=== PATIENT | female | born 1980 | race Caucasian/White ===

== ENCOUNTER → 2017-09-12 | Outpatient (REF) | payer OTHER ==
[2017-09-12 12:37] LABS: HEMATOCRIT 30.8 % (36.0-47.0); HEMOGLOBIN 9.4 g/dl (12.0-15.5); MEAN CORPUSCULAR HEMOGLOBIN 24.2 pg (27.0-33.0); MEAN CORPUSCULAR HGB CONC 30.5 g/dl (32.0-36.5); MEAN CORPUSCULAR VOLUME 79.4 fl (80.0-96.0); PLATELET COUNT, AUTOMATED 304 10^3/uL (150-450); RED BLOOD COUNT 3.88 10^6/uL (4.00-5.40); RED CELL DISTRIBUTION WIDTH 15.3 % (11.5-14.5); WHITE BLOOD COUNT 4.5 10^3/uL (4.0-10.0)
== END ==
LOC: M SFHCWAGY 10:42
DX: Z12.4 Encounter for screening for malignant neoplasm of cervix (principal); N92.0 Excessive and frequent menstruation with regular cycle
CPT/HCPCS: 84443

== ENCOUNTER → 2018-01-27 | Outpatient (CLI) | payer BC, OTHER | LOC: M WUC 18:04 | DX: M19.071 Primary osteoarthritis, right ankle and foot (principal); M79.674 Pain in right toe(s) | CPT/HCPCS: 73630 ==

== ENCOUNTER → 2018-06-01 | Outpatient (CLI) | payer BC, OTHER ==
[2018-06-01 18:46] LABS: HEMATOCRIT 29.1 % (36.0-47.0); HEMOGLOBIN 8.5 g/dl (12.0-15.5); MEAN CORPUSCULAR HEMOGLOBIN 22.1 pg (27.0-33.0); MEAN CORPUSCULAR HGB CONC 29.2 g/dl (32.0-36.5); MEAN CORPUSCULAR VOLUME 75.6 fl (80.0-96.0); PLATELET COUNT, AUTOMATED 319 10^3/uL (150-450); RED BLOOD COUNT 3.85 10^6/uL (4.00-5.40)
[2018-06-01 19:07] LABS: ALBUMIN 3.7 GM/DL (3.2-5.2); ALT/SGPT 17 U/L (12-78); BILIRUBIN,TOTAL 0.3 MG/DL (0.2-1.0); BLOOD UREA NITROGEN 9 MG/DL (7-18); CALCIUM LEVEL 8.9 MG/DL (8.5-10.1); CARBON DIOXIDE LEVEL 25 MEQ/L (21-32); CHLORIDE LEVEL 110 MEQ/L (98-107); CREATININE FOR GFR 0.58 MG/DL (0.55-1.30); FERRITIN 2 NG/ML (8-252); GLOMERULAR FILTRATION RATE > 60.0 (>60); GLUCOSE, FASTING 85 MG/DL (70-100); IRON (FE) 13 UG/DL (50-170); PERCENT SATURATION 2.6 % (13.2-45.0); POTASSIUM SERUM 4.7 MEQ/L (3.5-5.1); SODIUM LEVEL 140 MEQ/L (136-145); TOTAL IRON BINDING CAPACITY 507 UG/DL (250-450); TOTAL PROTEIN 6.5 GM/DL (6.4-8.2)
[2018-06-01 19:08] LABS: TOTAL 25(OH) VITAMIN D 25.9 NG/ML (30.0-100.0); VITAMIN B12 LEVEL 1768 PG/ML (247-911)
== END ==
LOC: M LAB 17:23
PROVIDERS: ATTEND Nurse Practitioner Adult Health
DX: Z00.00 Encounter for general adult medical examination without abnormal findings (principal); Z98.84 Bariatric surgery status; E55.9 Vitamin D deficiency, unspecified; E53.8 Deficiency of other specified B group vitamins

== ENCOUNTER → 2018-09-01 | Outpatient (REF) | payer OTHER ==
[~2018-09-01] MED LIST: AMIT10TA PO; CVS5000S2 PO; DRIS50003 PO; MULTCAP PO; [UNRECOGNIZED DRUG - OTHER] PO
[2018-09-01 16:14] LABS: HEMATOCRIT 34.6 % (36.0-47.0); HEMOGLOBIN 10.6 g/dl (12.0-15.5); MEAN CORPUSCULAR HEMOGLOBIN 25.3 pg (27.0-33.0); MEAN CORPUSCULAR HGB CONC 30.6 g/dl (32.0-36.5); MEAN CORPUSCULAR VOLUME 82.6 fl (80.0-96.0); PLATELET COUNT, AUTOMATED 274 10^3/uL (150-450); RED BLOOD COUNT 4.19 10^6/uL (4.00-5.40); WHITE BLOOD COUNT 4.7 10^3/uL (4.0-10.0)
[2018-09-01 16:17] LABS: ALBUMIN 3.8 GM/DL (3.2-5.2); ALT/SGPT 18 U/L (12-78); BILIRUBIN,TOTAL 0.2 MG/DL (0.2-1.0); BLOOD UREA NITROGEN 8 MG/DL (7-18); CALCIUM LEVEL 9.1 MG/DL (8.5-10.1); CARBON DIOXIDE LEVEL 27 MEQ/L (21-32); CHLORIDE LEVEL 109 MEQ/L (98-107); CREATININE FOR GFR 0.63 MG/DL (0.55-1.30); FERRITIN 7 NG/ML (8-252); GLOMERULAR FILTRATION RATE > 60.0 (>60); GLUCOSE, FASTING 74 MG/DL (70-100); IRON (FE) 21 UG/DL (50-170); PERCENT SATURATION 4.3 % (13.2-45.0); POTASSIUM SERUM 4.2 MEQ/L (3.5-5.1); SODIUM LEVEL 140 MEQ/L (136-145); TOTAL IRON BINDING CAPACITY 490 UG/DL (250-450); TOTAL PROTEIN 6.9 GM/DL (6.4-8.2)
[2018-09-01 16:31] LABS: TOTAL 25(OH) VITAMIN D 23.2 NG/ML (30.0-100.0)
== END ==
LOC: M SFHCPLAZ 14:02
PROVIDERS: ATTEND Nurse Practitioner Adult Health
DX: Z98.84 Bariatric surgery status (principal); E55.9 Vitamin D deficiency, unspecified

== ENCOUNTER → 2019-12-10 | Outpatient (CLI) | payer BC ==
--- NOTE | 2019-12-20 16:21 | REP ---
BILATERAL MAMMOGRAM WITH 3D TOMOSYNTHESIS AND LEFT BREAST ULTRASOUND HISTORY: Left axillary soreness radiating to upper left breast. Baseline mammogram. No comparison studies. No family history of breast cancer. Tyrer- Cuzick lifetime risk of breast cancer 12.4%. TECHNIQUE: MLO and CC views of both breasts performed with 3D tomosynthesis. FINDINGS: Moderate heterogeneous fibroglandular tissue is seen in a fairly symmetrical pattern bilaterally. Volpara breast density is C. There appears to be a smoothly marginated nodule in the medial left breast in the region of 9 o'clock, approximately 6 cm from the nipple. This measures about 8 mm in maximum diameter. Otherwise, no mass is seen bilaterally and there is no architectural distortion. There are no suspicious clusters of microcalcifications. There is no evidence of axillary adenopathy mammographically. Real-time sonographic evaluation of the left axillary region performed, as well as the area of pain in the upper left breast, predominantly medially. At the 9 o'clock position of the left breast, there is an oval hypoechoic nodule present. This measures 8 x 10 x 3 mm. This probably corresponds to the nodule on the mammogram. No other cystic or solid mass is seen in the visualized portions of the left breast and in the left axilla. IMPRESSION: ACR 4 suspicious. There is an oval hypoechoic nodule at the 9 o'clock position of the left breast measuring 1 cm in maximum diameter with mildly lobulated borders. I suspect this corresponds to a smoothly marginated nodule on the mammogram, located medially in the left breast. Recommend ultrasound-guided biopsy. Postprocedure mammogram should be performed. This mammogram was interpreted with the aid of an FDA approved computer-aided detection system. The patient states her last clinical breast exam was 11/2019. Patient letter: 4. COLBY
== END ==
LOC: M WHC 10:00
PROVIDERS: ATTEND Nurse Practitioner Family
DX: N64.4 Mastodynia (principal); N63.20 Unspecified lump in the left breast, unspecified quadrant
CPT/HCPCS: 76642; 77066; G0279

== ENCOUNTER → 2020-01-26 | Outpatient (CLI) | payer BC ==
[2020-01-26 15:11] VITALS: BP 124/68
--- NOTE | 2020-01-26 16:18 | REP ---
INDICATION: R92.8 ABNORMAL MAMMOGRAM LT BREAST,POST BIOPSY. COMPARISON: 12/10/2019. TECHNIQUE: ML and CC views left breast performed. Ultrasound-guided biopsy of a nodule in the medial left breast was performed today. FINDINGS: Biopsy clip is noted medially in the left breast at the site of a previous identified nodule on the mammogram of 12/10/2019. IMPRESSION: Appropriate biopsy clip position at the site of a nodule seen on the prior mammogram of 12/10/2019. This was biopsied today with ultrasound guidance. RECOMMENDATION: Clinical follow-up. <Electronically signed by George Juarez > 01/26/20 [id number]
--- NOTE | 2020-01-26 16:19 | REP ---
INDICATION: R92.8 ABNORMAL MAMMOGRAM LT BREAST. COMPARISON: 12/10/2019. TECHNIQUE: Real-time sonographic evaluation of left breast performed. FINDINGS: Ultrasound guidance was provided for Dr. Hendrickson who performed ultrasound-guided biopsy of an oval hypoechoic nodule of the left breast at 9 o'clock position. IMPRESSION: Ultrasound guidance provided for Dr. Hendrickson who performed ultrasound-guided biopsy of a nodule at the 9 o'clock position of the left breast. RECOMMENDATION: Clinical follow-up. <Electronically signed by George Juarez > 01/26/20 [id number]
--- NOTE | 2020-01-29 20:44 | ROOPDOC ---
[facility] Report Of Operation Report of Operation DATE OF PROCEDURE: 01/26/20 DIAGNOSIS: Left breast suspicious lesion PROCEDURE: Ultrasound guided biopsy of left breast suspicious lesion SURGEON: Catherine Carter BLOOD LOSS: minimal COMPLICATIONS: none Lidocaine 1% LOT [id number] Expiration 10/2022 Sodium Bicarbonate 8.4% LOT [id number] Expiration 12/2020 Hydromark clip LOT [id number] Expiration 10/2022 SHAPE 3 Bx device: BARD [id number] x10 cm LOT [id number] Expiration 08/2022 Informed consent was obtained. The most common risk and possible complications including bleeding, hematoma, bruising, infection, injury to surrounding structures were explained to the patient and the patient expressed understanding. Patient was placed on the bed in the supine position. Appropriate time out was done stating patients name, date of , and the procedure to be performed. The left breast was prepped and draped in the usual fashion. The ultrasound was used to confirm the location of the lesion in the left breast at 9:00 6 centimeters from the nipple. Plain Lidocaine 1% and 8.4% sodium bicarbonate 10:1 mix was used to anesthetize the skin, the biopsy site and tissues along the anticipated biopsy tract. Small skin incision was made with blade number 11. BARD Marquee 14G cannula with introducer ([id number]) was inserted through the incision and advanced under the ultrasound guidance to position immediately adjacent to the lesion. Next, the introducer was removed and BARD Marquee 14G biopsy device was places in the cannula. Pre-biopsy imaging, and post-biopsy imaging were captured. Five good core biopsies were taken at various levels of the lesion. Specimen was placed in formaldehyde, labeled with appropriate biopsy site and patients name, and sent to pathology for evaluation. Next, the biopsy device was withdrawn and a clip introducer was inserted into the biopsy site via the cannula. The SHAPE 3 Hydromark clip was deployed under sonographic guidance. Post-clip placement image was captured. Manual pressure over the biopsy cavity and tract was held after the clip introducer was withdrawn. No bleeding was noted upon removal of the pressure. Post-biopsy mammogram of the left breast was obtained and showed clip in expected position. Postprocedural dressing was placed. Patient tolerated procedure well. Discharge instructions were discussed with the patient and the patient expressed understanding. CATHERINE CARTER DO Jan 29, 2020 20:44
== END ==
LOC: M WHCPRO 13:44
PROVIDERS: ATTEND Surgery
DX: N60.12 Diffuse cystic mastopathy of left breast (principal)

== ENCOUNTER → 2020-07-10 | Outpatient (CLI) | payer BC ==
[~2020-07-10] MED LIST changes: -AMIT10TA PO; +AMIT10TA7 PO
--- NOTE | 2020-07-10 14:08 | REP ---
INDICATION: R92.8 ABN LEFT BREAST MAMMO/6 MO F/U S/P BX. COMPARISON: 01/26/2020 and 12/10/2019 TECHNIQUE: Cc and MLO views of the left breast were obtained using both 2D and 3D modalities. Diagnostic ultrasonography of the left breast was obtained at the 9 o'clock position as on the prior exam. FINDINGS: They post biopsy clip remains in satisfactory position mammographically. The surgical biopsy clip is seen at the 9 o'clock position at the site of where the nodule was previously seen. The Volpara volumetric breast density pattern is b. IMPRESSION: BIRADS/ACR category 1 negative left mammogram. And left breast ultrasound The patient letter being requested is M1. RECOMMENDATION: Repeat screening mammography recommended 1 year (for women over 40). <Electronically signed by Nader Roe > 07/10/20 [id number]
== END ==
LOC: M WHC 09:54
PROVIDERS: ATTEND Surgery
DX: R92.8 Other abnormal and inconclusive findings on diagnostic imaging of breast (principal)
CPT/HCPCS: 76642; 77065; G0279

== ENCOUNTER → 2020-11-08 | Outpatient (CLI) | payer BC, OTHER ==
[2020-11-08 17:10] LABS: HEMATOCRIT 30.6 % (36.0-47.0); HEMOGLOBIN 8.4 g/dl (12.0-15.5); MEAN CORPUSCULAR HEMOGLOBIN 20.8 pg (27.0-33.0); MEAN CORPUSCULAR HGB CONC 27.5 g/dl (32.0-36.5); MEAN CORPUSCULAR VOLUME 75.7 fl (80.0-96.0); PLATELET COUNT, AUTOMATED 360 10^3/uL (150-450); RED BLOOD COUNT 4.04 10^6/uL (4.00-5.40); WHITE BLOOD COUNT 7.1 10^3/uL (4.0-10.0)
[2020-11-08 17:51] LABS: ALBUMIN 3.7 GM/DL (3.2-5.2); ALT/SGPT 17 U/L (12-78); BILIRUBIN,TOTAL 0.5 MG/DL (0.2-1.0); BLOOD UREA NITROGEN 11 MG/DL (7-18); CALCIUM LEVEL 8.9 MG/DL (8.5-10.1); CARBON DIOXIDE LEVEL 22 MEQ/L (21-32); CHLORIDE LEVEL 112 MEQ/L (98-107); CREATININE FOR GFR 0.66 MG/DL (0.55-1.30); FERRITIN 4 NG/ML (8-252); GLOMERULAR FILTRATION RATE > 60.0 (>60); GLUCOSE, FASTING 86 MG/DL (70-100); IRON (FE) 27 UG/DL (50-170); PERCENT SATURATION 4.7 % (13.2-45.0); POTASSIUM SERUM 4.7 MEQ/L (3.5-5.1); SODIUM LEVEL 141 MEQ/L (136-145); TOTAL IRON BINDING CAPACITY 569 UG/DL (250-450)
[2020-11-08 18:28] LABS: HEMOGLOBIN A1c 5.2 %
[2020-11-08 18:34] LABS: TOTAL 25(OH) VITAMIN D 25.3 NG/ML (30.0-100.0); VITAMIN B12 LEVEL 271 PG/ML (247-911)
== END ==
LOC: M PLALAB 14:41
PROVIDERS: ATTEND Nurse Practitioner Adult Health
DX: Z00.00 Encounter for general adult medical examination without abnormal findings (principal); E55.9 Vitamin D deficiency, unspecified; Z98.84 Bariatric surgery status; Z68.33 Body mass index [BMI] 33.0-33.9, adult; D50.9 Iron deficiency anemia, unspecified

== ENCOUNTER 2020-11-21 09:05 | Outpatient (CLI) | payer BC, OTHER ==
[~2020-11-21] VITALS: Ht 175.3 cm; Wt 81.0 kg
[~2020-11-21 09:05] MED LIST changes: +IRON SUCROSE 25 MG in NS 25 ML IV ONE; +IRON SUCROSE 475 MG in NS 250 ML IV ONE
[2020-11-21 09:15] VITALS: BP 160/78
[2020-11-21 10:35] VITALS: BP 145/79
[2020-11-21 12:03] VITALS: BP 118/68
[2020-11-21 14:19] VITALS: BP 129/73
== END 2020-11-21 14:30 | disposition home or self-care (01) ==
LOC: M INFU 09:05
PROVIDERS: ATTEND Nurse Practitioner Adult Health
DX: D50.9 Iron deficiency anemia, unspecified (principal)
CPT/HCPCS: 96365; 96366; J1756

== ENCOUNTER → 2021-05-14 | Outpatient (CLI) | payer BC, OTHER ==
[~2021-05-14] MED LIST changes: -IRON SUCROSE 25 MG in NS 25 ML IV ONE; -IRON SUCROSE 475 MG in NS 250 ML IV ONE
[2021-05-14 13:27] LABS: HEMATOCRIT 36.2 % (36.0-47.0); HEMOGLOBIN 11.2 g/dl (12.0-15.5); MEAN CORPUSCULAR HEMOGLOBIN 25.3 pg (27.0-33.0); MEAN CORPUSCULAR HGB CONC 30.9 g/dl (32.0-36.5); MEAN CORPUSCULAR VOLUME 81.7 fl (80.0-96.0); PLATELET COUNT, AUTOMATED 322 10^3/uL (150-450); RED BLOOD COUNT 4.43 10^6/uL (4.00-5.40)
[2021-05-14 14:15] LABS: HEMOGLOBIN A1c 5.1 %
[2021-05-14 14:17] LABS: ALBUMIN 3.8 GM/DL (3.2-5.2); ALT/SGPT 16 U/L (12-78); BILIRUBIN,TOTAL 0.4 MG/DL (0.2-1.0); BLOOD UREA NITROGEN 9 MG/DL (7-18); CALCIUM LEVEL 9.4 MG/DL (8.5-10.1); CARBON DIOXIDE LEVEL 23 MEQ/L (21-32); CHLORIDE LEVEL 108 MEQ/L (98-107); CREATININE FOR GFR 0.59 MG/DL (0.55-1.30); GLOMERULAR FILTRATION RATE > 60.0 (>58); GLUCOSE, FASTING 78 MG/DL (70-100); IRON (FE) 23 UG/DL (50-170); POTASSIUM SERUM 4.5 MEQ/L (3.5-5.1); SODIUM LEVEL 139 MEQ/L (136-145); TOTAL IRON BINDING CAPACITY 571 UG/DL (250-450); TOTAL PROTEIN 6.9 GM/DL (6.4-8.2)
[2021-05-14 17:15] LABS: VITAMIN B12 LEVEL 317 PG/ML (247-911)
[2021-05-15 12:27] LABS: TOTAL 25(OH) VITAMIN D 11.8 NG/ML (30.0-100.0)
== END ==
LOC: M PLALAB 09:04
PROVIDERS: ATTEND Nurse Practitioner Adult Health
DX: E53.9 Vitamin B deficiency, unspecified (principal); E55.9 Vitamin D deficiency, unspecified; D50.9 Iron deficiency anemia, unspecified; Z68.35 Body mass index [BMI] 35.0-35.9, adult

== ENCOUNTER → 2022-01-21 | Outpatient (CLI) | payer BC, OTHER ==
[2022-01-21 18:27] LABS: HEMATOCRIT 37.9 % (36.0-47.0); HEMOGLOBIN 11.5 g/dl (12.0-15.5); MEAN CORPUSCULAR HEMOGLOBIN 26.5 pg (27.0-33.0); MEAN CORPUSCULAR HGB CONC 30.3 g/dl (32.0-36.5); MEAN CORPUSCULAR VOLUME 87.3 fl (80.0-96.0); PLATELET COUNT, AUTOMATED 364 10^3/uL (150-450); RED BLOOD COUNT 4.34 10^6/uL (4.00-5.40); WHITE BLOOD COUNT 6.3 10^3/uL (4.0-10.0)
[2022-01-21 19:04] LABS: ALBUMIN 4.1 GM/DL (3.2-5.2); ALT/SGPT 16 U/L (12-78); BILIRUBIN,TOTAL 0.4 MG/DL (0.2-1.0); BLOOD UREA NITROGEN 8 MG/DL (7-18); CALCIUM LEVEL 9.7 MG/DL (8.5-10.1); CARBON DIOXIDE LEVEL 27 MEQ/L (21-32); CHLORIDE LEVEL 106 MEQ/L (98-107); CREATININE FOR GFR 0.74 MG/DL (0.55-1.30); FERRITIN 4 NG/ML (8-252); GLOMERULAR FILTRATION RATE > 60.0 (>58); GLUCOSE, FASTING 89 MG/DL (70-100); IRON (FE) 27 UG/DL (50-170); POTASSIUM SERUM 4.8 MEQ/L (3.5-5.1); SODIUM LEVEL 135 MEQ/L (136-145); TOTAL IRON BINDING CAPACITY 538 UG/DL (250-450); TOTAL PROTEIN 7.1 GM/DL (6.4-8.2)
[2022-01-21 21:07] LABS: HEMOGLOBIN A1c 4.9 %
[2022-01-21 21:17] LABS: TOTAL 25(OH) VITAMIN D 25.6 NG/ML (30.0-100.0); VITAMIN B12 LEVEL 402 PG/ML (247-911)
== END ==
LOC: M PLALAB 16:21
PROVIDERS: ATTEND Nurse Practitioner Adult Health
DX: E55.9 Vitamin D deficiency, unspecified (principal); Z98.84 Bariatric surgery status; D50.9 Iron deficiency anemia, unspecified; E53.8 Deficiency of other specified B group vitamins; R63.5 Abnormal weight gain

== ENCOUNTER → 2022-07-22 | Outpatient (CLI) | payer BC, OTHER ==
[2022-07-22 17:25] LABS: HEMATOCRIT 35.8 % (36.0-47.0); HEMOGLOBIN 10.8 g/dl (12.0-15.5); MEAN CORPUSCULAR HEMOGLOBIN 24.9 pg (27.0-33.0); MEAN CORPUSCULAR HGB CONC 30.2 g/dl (32.0-36.5); MEAN CORPUSCULAR VOLUME 82.5 fl (80.0-96.0); PLATELET COUNT, AUTOMATED 446 10^3/uL (150-450); RED BLOOD COUNT 4.34 10^6/uL (4.00-5.40); WHITE BLOOD COUNT 7.1 10^3/uL (4.0-10.0)
[2022-07-22 17:48] LABS: ALBUMIN 3.9 G/DL (3.2-5.2); ALKALINE PHOSPHATASE 135 U/L (46-116); ALT/SGPT 11 U/L (7.0-40); AST/SGOT 15 U/L (<34); BILIRUBIN,TOTAL 0.5 MG/DL (0.3-1.2); BLOOD UREA NITROGEN 17 MG/DL (9-23); CALCIUM LEVEL 9.6 MG/DL (8.5-10.1); CARBON DIOXIDE LEVEL 26 MMOL/L (20-31); CHLORIDE LEVEL 103 MMOL/L (98-107); CREATININE FOR GFR 0.83 MG/DL (0.55-1.30); GLOMERULAR FILTRATION RATE > 60.0 (>58); GLUCOSE, FASTING 90 MG/DL (60-100); IRON (FE) 20 UG/DL (50-170); PERCENT SATURATION 4.2 % (13.2-45.0); POTASSIUM SERUM 4.2 MMOL/L (3.5-5.1); SODIUM LEVEL 136 MMOL/L (136-145); TOTAL IRON BINDING CAPACITY 474 UG/DL (250-425); TOTAL PROTEIN 7.1 G/DL (5.7-8.2)
[2022-07-22 17:51] LABS: THYROID STIMULATING HORMONE 5.366 uIU/ML (0.55-4.78)
[2022-07-22 17:52] LABS: FERRITIN 3.9 NG/ML (7.3-270.7); TOTAL 25(OH) VITAMIN D 20.5 NG/ML (20.0-100.0); VITAMIN B12 LEVEL 227 PG/ML (211-911)
== END ==
LOC: M PLALAB 15:55
PROVIDERS: ATTEND Nurse Practitioner Adult Health
DX: Z98.84 Bariatric surgery status (principal); D50.9 Iron deficiency anemia, unspecified

== ENCOUNTER 2022-08-16 09:12 | Outpatient (CLI) | payer BC, OTHER ==
[~2022-08-16] VITALS: Ht 170.2 cm; Wt 104.1 kg
[~2022-08-16 09:12] MED LIST changes: +ALBUTEROL SULFATE 2.5MG/0.5ML INH NEB SOLN INH PRN; +EPINEPHrine INJ 1 MG/ML 1ML AMP IM PRN; +diphenhydrAMINE 50MG/ML VIAL IV PRN; +methylPREDNISolone 125MG 2ML VIAL IV PRN
[2022-08-16 09:20] VITALS: BP 134/81; O2SAT 99
[2022-08-16] MEDS ORDERED: NS 1,000 ML IV SCH (10:00)
[2022-08-16] MEDS ORDERED: IRON SUCROSE 475 MG in NS 250 ML IV ONE (10:00)
[2022-08-16] MEDS ORDERED: IRON SUCROSE 25 MG in NS 23.75 ML IV ONE (10:00)
[2022-08-16] MEDS ORDERED: IRON SUCROSE 500 MG in NS 250 ML OVER 4 HRS IV ONE (10:30)
[2022-08-16 11:40] VITALS: BP 122/74; O2SAT 97
[2022-08-16 12:40] VITALS: BP 130/70; O2SAT 99
[2022-08-16 13:40] VITALS: BP 142/78; O2SAT 97
[2022-08-16 14:45] VITALS: BP 138/82; O2SAT 99
== END 2022-08-16 14:45 | disposition home or self-care (01) ==
LOC: M INFU 09:12
PROVIDERS: ATTEND Nurse Practitioner Adult Health
DX: D50.9 Iron deficiency anemia, unspecified (principal)
CPT/HCPCS: 96365; 96366; J1756

== ENCOUNTER → 2022-08-29 | Outpatient (CLI) | payer BC, OTHER ==
[~2022-08-29] MED LIST changes: -ALBUTEROL SULFATE 2.5MG/0.5ML INH NEB SOLN INH PRN; -EPINEPHrine INJ 1 MG/ML 1ML AMP IM PRN; -diphenhydrAMINE 50MG/ML VIAL IV PRN; -methylPREDNISolone 125MG 2ML VIAL IV PRN
[2022-08-29 17:55] LABS: HEMOGLOBIN 11.5 g/dl (12.0-15.5); MEAN CORPUSCULAR HGB CONC 30.3 g/dl (32.0-36.5); MEAN CORPUSCULAR VOLUME 85.8 fl (80.0-96.0); PLATELET COUNT, AUTOMATED 333 10^3/uL (150-450); RED BLOOD COUNT 4.43 10^6/uL (4.00-5.40)
[2022-08-29 18:27] LABS: PERCENT SATURATION 10.1 % (13.2-45.0)
[2022-08-29 18:32] LABS: FERRITIN 48.9 NG/ML (7.3-270.7)
== END ==
LOC: M PLALAB 15:26
PROVIDERS: ATTEND Nurse Practitioner Adult Health
DX: D50.9 Iron deficiency anemia, unspecified (principal); Z98.84 Bariatric surgery status

== ENCOUNTER → 2022-11-07 | Outpatient (CLI) | payer BC, OTHER | LOC: M WHC 15:06 | PROVIDERS: ATTEND Specialist | DX: N92.6 Irregular menstruation, unspecified (principal); N83.202 Unspecified ovarian cyst, left side; N88.8 Other specified noninflammatory disorders of cervix uteri ==

== ENCOUNTER → 2022-11-21 | Outpatient (CLI) | payer BC, OTHER ==
[2022-11-21 19:19] LABS: HEMATOCRIT 38.5 % (36.0-47.0); HEMOGLOBIN 12.1 g/dl (12.0-15.5); MEAN CORPUSCULAR HEMOGLOBIN 28.3 pg (27.0-33.0); MEAN CORPUSCULAR HGB CONC 31.4 g/dl (32.0-36.5); MEAN CORPUSCULAR VOLUME 90.2 fl (80.0-96.0); PLATELET COUNT, AUTOMATED 343 10^3/uL (150-450); RED BLOOD COUNT 4.27 10^6/uL (4.00-5.40)
[2022-11-21 19:20] LABS: ALBUMIN 3.9 G/DL (3.2-5.2); ALKALINE PHOSPHATASE 104 U/L (46-116); ALT/SGPT 25 U/L (7.0-40); AST/SGOT 12 U/L (<34); BILIRUBIN,TOTAL 0.5 MG/DL (0.3-1.2); BLOOD UREA NITROGEN 15 MG/DL (9-23); CALCIUM LEVEL 9.4 MG/DL (8.5-10.1); CARBON DIOXIDE LEVEL 26 MMOL/L (20-31); CHLORIDE LEVEL 103 MMOL/L (98-107); CREATININE FOR GFR 0.83 MG/DL (0.55-1.30); GLOMERULAR FILTRATION RATE > 60.0 (>58); GLUCOSE, FASTING 95 MG/DL (60-100); POTASSIUM SERUM 4.1 MMOL/L (3.5-5.1); SODIUM LEVEL 137 MMOL/L (136-145); TOTAL PROTEIN 6.7 G/DL (5.7-8.2)
[2022-11-21 19:22] LABS: FERRITIN 7.3 NG/ML (7.3-270.7)
== END ==
LOC: M PLALAB 14:54
PROVIDERS: ATTEND Nurse Practitioner Adult Health
DX: D50.9 Iron deficiency anemia, unspecified (principal); R63.5 Abnormal weight gain

== ENCOUNTER → 2023-01-09 | Outpatient (CLI) | payer BC, OTHER ==
[2023-01-09 17:37] LABS: HEMOGLOBIN 12.3 g/dl (12.0-15.5); MEAN CORPUSCULAR HEMOGLOBIN 28.1 pg (27.0-33.0); MEAN CORPUSCULAR HGB CONC 31.5 g/dl (32.0-36.5); MEAN CORPUSCULAR VOLUME 89.2 fl (80.0-96.0); PLATELET COUNT, AUTOMATED 330 10^3/uL (150-450); RED BLOOD COUNT 4.37 10^6/uL (4.00-5.40); WHITE BLOOD COUNT 6.3 10^3/uL (4.0-10.0)
[2023-01-09 18:10] LABS: IRON (FE) 35 UG/DL (50-170)
[2023-01-09 18:11] LABS: PERCENT SATURATION 7.9 % (13.2-45.0); TOTAL IRON BINDING CAPACITY 441 UG/DL (250-425)
[2023-01-09 18:12] LABS: ALBUMIN 3.9 G/DL (3.2-5.2); ALKALINE PHOSPHATASE 107 U/L (46-116); ALT/SGPT 21 U/L (7.0-40); AST/SGOT 17 U/L (<34); BILIRUBIN,TOTAL 0.4 MG/DL (0.3-1.2); BLOOD UREA NITROGEN 12 MG/DL (9-23); CALCIUM LEVEL 9.5 MG/DL (8.5-10.1); CARBON DIOXIDE LEVEL 26 MMOL/L (20-31); CHLORIDE LEVEL 102 MMOL/L (98-107); CREATININE FOR GFR 0.73 MG/DL (0.55-1.30); GLOMERULAR FILTRATION RATE > 60.0 (>58); GLUCOSE, FASTING 75 MG/DL (60-100); POTASSIUM SERUM 4.3 MMOL/L (3.5-5.1); SODIUM LEVEL 137 MMOL/L (136-145); TOTAL PROTEIN 6.9 G/DL (5.7-8.2)
[2023-01-09 18:13] LABS: FERRITIN 5.5 NG/ML (7.3-270.7)
== END ==
LOC: M PLALAB 15:25
PROVIDERS: ATTEND Nurse Practitioner Adult Health
DX: D50.9 Iron deficiency anemia, unspecified (principal); R63.5 Abnormal weight gain

== ENCOUNTER 2023-02-07 07:00 | Outpatient (CLI) | payer BC, OTHER ==
[~2023-02-07] VITALS: Ht 170.2 cm; Wt 98.0 kg
[2023-02-07 07:00] VITALS: BP 131/85; O2SAT 96
[2023-02-07] MEDS ORDERED: IRON SUCROSE 500 MG in NS 250 ML OVER 4 HRS IV ONE (07:20)
[2023-02-07] MEDS ORDERED: ERGO500029 PO (07:44)
[2023-02-07] MEDS ORDERED: RIZA10TA2 PO (07:44)
[2023-02-07] MEDS ORDERED: FERR30CA PO (07:44)
[2023-02-07] MEDS ORDERED: BUPR300T92 PO (07:44)
[2023-02-07] MEDS ORDERED: EFFE75CA2 PO (07:44)
[2023-02-07 09:00] VITALS: BP 143/78; O2SAT 96
[2023-02-07 10:00] VITALS: BP 126/67; O2SAT 98
[2023-02-07 11:00] VITALS: BP 153/85; O2SAT 98
[2023-02-07 12:00] VITALS: BP 154/85; O2SAT 99
== END 2023-02-07 12:10 | disposition home or self-care (01) ==
LOC: M INFU 07:00
PROVIDERS: ATTEND Nurse Practitioner Adult Health
DX: D50.9 Iron deficiency anemia, unspecified (principal)
CPT/HCPCS: 96365; 96366; J1756

== ENCOUNTER 2023-02-21 12:34 | Day surgery (SDC) | payer BC, OTHER ==
[~2023-02-21] VITALS: Ht 170.2 cm; Wt 93.0 kg
[~2023-02-21 12:34] MED LIST changes: +BUPR300T92 PO; +EFFE75CA2 PO; +ERGO500029 PO; +FERR30CA PO; +RIZA10TA2 PO
[2023-02-21] MEDS ORDERED: LR 1,000 ML IV SCH ×2 (13:10→16:45)
[2023-02-21 13:28] LABS: HEMATOCRIT 42.1 % (36.0-47.0); HEMOGLOBIN 13.4 g/dl (12.0-15.5); MEAN CORPUSCULAR HEMOGLOBIN 29.3 pg (27.0-33.0); MEAN CORPUSCULAR HGB CONC 31.8 g/dl (32.0-36.5); MEAN CORPUSCULAR VOLUME 91.9 fl (80.0-96.0); PLATELET COUNT, AUTOMATED 322 10^3/uL (150-450); RED BLOOD COUNT 4.58 10^6/uL (4.00-5.40); WHITE BLOOD COUNT 5.3 10^3/uL (4.0-10.0)
[2023-02-21] MEDS ORDERED: SUCCINYLCHOLINE 100MG/5ML SYRINGE As Ordered ONE (15:32)
[2023-02-21] MEDS ORDERED: MIDAZOLAM INJ 2MG/2ML VIAL As Ordered ONE (15:32)
[2023-02-21] MEDS ORDERED: fentaNYL 100 MCG/2 ML INJECTION As Ordered ONE ×2 (15:32→15:55)
[2023-02-21] MEDS ORDERED: propofoL 200 MG/20 ML VIAL As Ordered ONE (15:32)
[2023-02-21] MEDS ORDERED: ROCURONIUM BROMIDE 50MG/5ML VIAL As Ordered ONE (15:32)
[2023-02-21] MEDS ORDERED: SUGAMMADEX SODIUM 500 MG/5 ML VIAL (BRIDION) As Ordered ONE (16:13)
[2023-02-21] MEDS ORDERED: OXYC1TAB23 PO (16:45)
[2023-02-21] MEDS ORDERED: HYDROMORPHONE HCL 0.5 MG/ 0.5 ML SYRINGE IV PRN (16:45)
[2023-02-21] MEDS ORDERED: oxyCODONE 5MG TAB PO PRN (16:45)
[2023-02-21] MEDS ORDERED: fentaNYL 100 MCG/2 ML INJECTION IV PRN (16:45)
[2023-02-21] MEDS ORDERED: ONDANSETRON 4MG 2ML VIAL IV PRN (16:45)
[2023-02-21 17:40] VITALS: BP 148/95; TEMP 97; O2SAT 99
== END 2023-02-21 18:04 | disposition home or self-care (01) ==
LOC: M SDC 12:34
PROVIDERS: ATTEND Specialist
DX: Z30.2 Encounter for sterilization (principal); N92.0 Excessive and frequent menstruation with regular cycle; N93.9 Abnormal uterine and vaginal bleeding, unspecified; D50.9 Iron deficiency anemia, unspecified; I10 Essential (primary) hypertension; Z98.84 Bariatric surgery status; E03.9 Hypothyroidism, unspecified; Z79.899 Other long term (current) drug therapy; F17.290 Nicotine dependence, other tobacco product, uncomplicated
CPT/HCPCS: 36415; 58563; 58571; 85027; 88302; 88305; J0330; J0665; J2250; J3010

== ENCOUNTER → 2023-03-25 | Outpatient (REF) | payer BC, OTHER ==
[~2023-03-25] MED LIST changes: +OXYC1TAB23 PO
== END ==
LOC: M SFHCDERM 14:00
PROVIDERS: ATTEND Nurse Practitioner Family
DX: D23.72 Other benign neoplasm of skin of left lower limb, including hip (principal)

== ENCOUNTER → 2023-04-29 | Outpatient (CLI) | payer BC, OTHER ==
[2023-04-29 10:56] LABS: HEMOGLOBIN A1c 4.6 % (4.0-6.0)
[2023-04-29 11:06] LABS: FERRITIN 23.5 NG/ML (7.3-270.7)
[2023-04-29 11:07] LABS: TOTAL 25(OH) VITAMIN D 25.3 NG/ML (20.0-100.0)
[2023-04-29 11:08] LABS: IRON (FE) 78 UG/DL (50-170); VITAMIN B12 LEVEL 234 PG/ML (211-911)
[2023-04-29 11:09] LABS: ALBUMIN 3.9 G/DL (3.2-5.2); ALKALINE PHOSPHATASE 96 U/L (46-116); ALT/SGPT 30 U/L (7.0-40); AST/SGOT 27 U/L (<34); BILIRUBIN,TOTAL 0.7 MG/DL (0.3-1.2); BLOOD UREA NITROGEN 11 MG/DL (9-23); CALCIUM LEVEL 9.3 MG/DL (8.5-10.1); CARBON DIOXIDE LEVEL 29 MMOL/L (20-31); CHLORIDE LEVEL 106 MMOL/L (98-107); CHOLESTEROL LEVEL 216 MG/DL (<200); CHOLESTEROL RISK RATIO 2.55 (<5); CREATININE FOR GFR 0.82 MG/DL (0.55-1.30); GLOMERULAR FILTRATION RATE > 60.0 (>58); GLUCOSE, FASTING 89 MG/DL (60-100); HDL CHOLESTEROL 84.5 MG/DL (>40); LDL CHOLESTEROL 112.9 MG/DL (<100); NON-HDL-C 131.5 MG/DL; POTASSIUM SERUM 4.1 MMOL/L (3.5-5.1); SODIUM LEVEL 141 MMOL/L (136-145); TOTAL PROTEIN 6.8 G/DL (5.7-8.2); TRIGLYCERIDES LEVEL 93 MG/DL (<150)
== END ==
LOC: M PLALAB 07:51
PROVIDERS: ATTEND Nurse Practitioner Adult Health
DX: R63.5 Abnormal weight gain (principal); D50.9 Iron deficiency anemia, unspecified; E53.8 Deficiency of other specified B group vitamins

== ENCOUNTER → 2023-06-11 | Outpatient (REF) | payer OTHER | LOC: M SFHCDERM 16:59 | PROVIDERS: ATTEND Physician Assistant | DX: L01.00 Impetigo, unspecified (principal) ==

== ENCOUNTER → 2023-07-29 | Outpatient (REF) | payer OTHER ==
[~2023-07-29] MED LIST changes: +BUPR-597 PO; -BUPR300T92 PO
== END ==
LOC: M LAB REF 12:14
PROVIDERS: ATTEND Physician Assistant
DX: L01.00 Impetigo, unspecified (principal)

== ENCOUNTER → 2024-02-17 | Outpatient (CLI) | payer BC ==
[2024-02-17 10:35] LABS: LIPASE 51 U/L (12-53)
[2024-02-17 10:37] LABS: ALBUMIN 3.7 G/DL (3.2-5.2); ALKALINE PHOSPHATASE 77 U/L (35-104); ALT/SGPT 17 U/L (7.0-40); AMYLASE 45 U/L (30-118); AST/SGOT 13 U/L (<34); BILIRUBIN,TOTAL 0.6 MG/DL (0.3-1.2); BLOOD UREA NITROGEN 10 MG/DL (9-23); CALCIUM LEVEL 9.7 MG/DL (8.5-10.1); CARBON DIOXIDE LEVEL 29 MMOL/L (20-31); CHLORIDE LEVEL 106 MMOL/L (98-107); CHOLESTEROL LEVEL 210 MG/DL (<200); CHOLESTEROL RISK RATIO 2.15 (<5); CREATININE FOR GFR 0.77 MG/DL (0.55-1.30); GLOMERULAR FILTRATION RATE > 60.0 (>58); GLUCOSE, FASTING 89 MG/DL (60-100); HDL CHOLESTEROL 97.6 MG/DL (>40); IRON (FE) 67 UG/DL (50-170); LDL CHOLESTEROL 99.4 MG/DL (<100); NON-HDL-C 112.4 MG/DL; PERCENT SATURATION 18.7 % (13.2-45.0); POTASSIUM SERUM 3.6 MMOL/L (3.5-5.1); SODIUM LEVEL 143 MMOL/L (136-145); TOTAL IRON BINDING CAPACITY 359 UG/DL (250-425); TOTAL PROTEIN 6.7 G/DL (5.7-8.2); TRIGLYCERIDES LEVEL 65 MG/DL (<150)
[2024-02-17 10:40] LABS: FERRITIN 22.8 NG/ML (7.3-270.7); HEMATOCRIT 40.8 % (36.0-47.0); HEMOGLOBIN 13.7 g/dl (12.0-15.5); MEAN CORPUSCULAR HEMOGLOBIN 32.3 pg (27.0-33.0); MEAN CORPUSCULAR HGB CONC 33.6 g/dl (32.0-36.5); MEAN CORPUSCULAR VOLUME 96.2 fl (80.0-96.0); PLATELET COUNT, AUTOMATED 317 10^3/uL (150-450); RED BLOOD COUNT 4.24 10^6/uL (4.00-5.40); WHITE BLOOD COUNT 3.6 10^3/uL (4.0-10.0)
== END ==
LOC: M PLALAB 07:41
PROVIDERS: ATTEND Nurse Practitioner Adult Health
DX: E55.9 Vitamin D deficiency, unspecified (principal); E66.9 Obesity, unspecified; Z98.84 Bariatric surgery status; D50.9 Iron deficiency anemia, unspecified

== ENCOUNTER 2024-09-20 20:26 | Emergency (ER) | payer BC ==
[~2024-09-20] VITALS: Ht 167.6 cm; Wt 71.0 kg
[~2024-09-20 20:26] MED LIST changes: +AMIT10TA11 PO; -AMIT10TA7 PO; -BUPR-597 PO; +BUPR-766 PO
[2024-09-20 21:03] LABS: PLATELET COUNT, AUTOMATED 288 10^3/uL (150-450)
[2024-09-20 21:30] LABS: AMPHETAMINES LEVEL URINE NEGATIVE (NEGATIVE); BARBITURATES URINE NEGATIVE (NEGATIVE); BENZODIAZEPINES URINE NEGATIVE (NEGATIVE); CANNABINOIDS URINE NEGATIVE (NEGATIVE); COCAINE METABOLITE URINE NEGATIVE (NEGATIVE); METHADONE URINE NEGATIVE (NEGATIVE); OPIATES URINE NEGATIVE (NEGATIVE); PHENCYCLIDINE URINE NEGATIVE (NEGATIVE)
[2024-09-20 21:32] LABS: ETHYL ALCOHOL (ETHANOL) 0.178 % (0.000-0.010)
[2024-09-20 21:34] LABS: ALT/SGPT 17 U/L (7.0-40); AST/SGOT 30 U/L (<34); CALCIUM LEVEL 8.7 MG/DL (8.5-10.1); CARBON DIOXIDE LEVEL 26 MMOL/L (20-31); CHLORIDE LEVEL 106 MMOL/L (98-107); CREATININE FOR GFR 0.66 MG/DL (0.55-1.30); GLOMERULAR FILTRATION RATE > 90.0 (>58); POTASSIUM SERUM 3.4 MMOL/L (3.5-5.1); SALICYLATE LEVEL < 3.0 MG/DL (<30); SODIUM LEVEL 144 MMOL/L (136-145)
[2024-09-21] MEDS: POTASSIUM CHLORIDE 10MEQ SR TABLET PO ONE (00:08)
[2024-09-21 13:41] VITALS: BP 156/89; TEMP 97.9; O2SAT 100
== END 2024-09-21 13:44 | disposition home or self-care (01) ==
LOC: M ED 20:26
DX: F10.14 Alcohol abuse with alcohol-induced mood disorder (principal); F32.A Depression, unspecified; F41.9 Anxiety disorder, unspecified; Z91.018 Allergy to other foods; Z79.899 Other long term (current) drug therapy

== ENCOUNTER 2024-12-14 11:17 | Outpatient (CLI) | payer BC ==
[~2024-12-14] VITALS: Ht 170.2 cm; Wt 69.1 kg
[~2024-12-14 11:17] MED LIST changes: +ALBUTEROL SULFATE 2.5 MG/0.5 ML INH CONCENTRATE NEB SOLN INH PRN; +EPINEPHrine INJ 1 MG/ML 1ML AMP IM PRN; +diphenhydrAMINE 50 MG/ML VIAL IV PRN
[2024-12-14 11:40] VITALS: BP 148/91; O2SAT 100
[2024-12-14] MEDS: IRON SUCROSE 300 MG in NS 250 ML OVER 90 MIN. IV ONE (12:13)
[2024-12-14 13:50] VITALS: BP 153/90; O2SAT 99
== END 2024-12-14 14:00 ==
LOC: M INFU 11:17
PROVIDERS: ATTEND Nurse Practitioner Adult Health
DX: D50.9 Iron deficiency anemia, unspecified (principal)
CPT/HCPCS: 96365; J1756

== ENCOUNTER 2024-12-21 11:44 | Outpatient (CLI) | payer BC ==
[~2024-12-21] VITALS: Ht 170.2 cm; Wt 69.0 kg
[2024-12-21 12:15] VITALS: BP 140/82; O2SAT 100
[2024-12-21] MEDS: IRON SUCROSE 300 MG in NS 250 ML OVER 90 MIN. IV ONE (12:42)
[2024-12-21 14:20] VITALS: BP 124/55; O2SAT 99
== END 2024-12-21 14:20 ==
LOC: M INFU 11:44
PROVIDERS: ATTEND Nurse Practitioner Adult Health
DX: D50.9 Iron deficiency anemia, unspecified (principal); Z91.018 Allergy to other foods
CPT/HCPCS: 96365; 96366; J1756